=== PATIENT | male | born 1960 | race Native Hawaiian/Other Pacific Islander ===

== ENCOUNTER 2021-01-17 05:25 | Emergency (ER) | payer OTHER ==
[~2021-01-17] VITALS: Ht 170.2 cm; Wt 128.4 kg
[2021-01-17 07:00] VITALS: TEMP 98.4
[2021-01-17 08:05] VITALS: BP 117/78
== END 2021-01-17 08:05 | disposition home or self-care (01) ==
LOC: ED 05:39
DX: S20.213A Contusion of bilateral front wall of thorax, initial encounter (principal); S00.81XA Abrasion of other part of head, initial encounter; S20.311A Abrasion of right front wall of thorax, initial encounter; E11.9 Type 2 diabetes mellitus without complications; V89.2XXA Person injured in unspecified motor-vehicle accident, traffic, initial encounter; Y92.410 Unspecified street and highway as the place of occurrence of the external cause
CPT/HCPCS: 82948; 96372; 99283; J1885

== ENCOUNTER 2021-01-20 10:30 | Emergency (ER) | payer OTHER ==
[~2021-01-20] VITALS: Ht 172.7 cm; Wt 127.0 kg
[2021-01-20 10:30] VITALS: TEMP 98
[2021-01-20 10:46] LABS: PLATELET COUNT 238 K/uL (142-355)
[2021-01-20 11:14] LABS: SODIUM 130 mmol/L (136-145)
[2021-01-20 11:15] LABS: PARTIAL THROMBOPLASTIN TIME 24.4 SECONDS (24.5-33.6)
[2021-01-20 11:17] LABS: POTASSIUM 6.4 mmol/L (3.6-5.2)
[2021-01-20 14:55] VITALS: BP 127/75
== END 2021-01-20 16:00 | disposition short-term general hospital (02) ==
LOC: ED 10:30
PROVIDERS: Hospitalist
PROC: 0T9B70Z Drainage of Bladder with Drainage Device, Via Natural or Artificial Opening (ICD-10-PCS; principal; 2021-01-20)
DX: N17.8 Other acute kidney failure (principal); E87.5 Hyperkalemia
CPT/HCPCS: 51702; 80053; 81000; 82550; 82553; 83880; 84484; 85027; 85610; 85730; 93005; 96360; 96365; 96375; 99284; J0610; J1815; J3370; J3490; J7060

== ENCOUNTER 2021-04-04 15:52 | Outpatient (CLI) | payer OTHER | END 2021-04-04 21:09 | disposition home or self-care (01) | LOC: US 15:52 | PROVIDERS: ATTEND Internal Medicine Nephrology | DX: R79.9 Abnormal finding of blood chemistry, unspecified (principal) ==